=== PATIENT | male | born 1960 | race Caucasian/White ===

== ENCOUNTER → 2022-05-12 | Outpatient (CLI) | payer SELFPAY ==
--- NOTE | 2022-05-12 10:22 | RAD_ITS ---
INDICATION: Segmental and somatic dysfunction Lumbar region -- Segmental and somatic dysfunction Sacral region EXAMINATION/TECHNIQUE: X-RAY - XR Spine Lumbar Min 4 Views COMPARISON: None. FINDINGS: Mild dextro scoliosis of the lumbar spine is visualized, straightening of alignment of the columns of the lumbar spine visualized on the lateral view. No evidence of spondylolisthesis is seen. Decreased anterior height of the L1 vertebral body is visualized. No evidence of compression deformity of the lumbar vertebral bodies. Multilevel degenerative endplate changes with anterior osteophyte formation is seen. Decreased intervertebral disc height visualized throughout the lumbar spine but most prominent at L3-L4. Increased density in the posterior column consistent with hypertrophic changes in the facet joints. Oblique images demonstrate no evidence of pars interarticularis fracture. Included bowel gas pattern is non-obstructive. RAD/L/S Spine Min 4 Views IMPRESSION: Extensive degenerative changes of the lumbar spine, no evidence of lumbar spinal fracture or spondylolisthesis. Electronically Signed: Jeremiah Villarreal MD at 11:59 EDT ,
== END | disposition home or self-care (01) ==
PROVIDERS: PCP Family Medicine
DX: M99.03 Segmental and somatic dysfunction of lumbar region (principal); M99.04 Segmental and somatic dysfunction of sacral region
CPT/HCPCS: 72110